=== PATIENT | female | born 1995 | race Hispanic/Latino ===

== ENCOUNTER 2019-04-10 07:39 | Emergency (ER) | payer MEDICAID ==
[2019-04-10] MEDS ORDERED: SODIUM CHLORIDE 0.9% 1000ML 1,000 ML IV ONE (08:21)
[2019-04-10] MEDS ORDERED: ONDANSETRON HCL 4 MG/2 ML VIAL ONE (08:21)
[2019-04-10 08:30] LABS: BASOPHILS % (AUTO) 0.5 % (0.0-5.0); EOSINOPHILS % (AUTO) 1.3 % (0.0-8.0); LYMPHOCYTES % (AUTO) 26.2 % (21.0-51.0); MEAN CORPUSCULAR HEMOGLOBIN 31.7 pg (27.0-33.0); MEAN CORPUSCULAR VOLUME 90.5 fL (79-99); MONOCYTES % (AUTO) 4.7 % (3.0-13.0); PLATELET COUNT (AUTO) 243 K/uL (130-400); RED BLOOD CELL COUNT(AUTO) 3.98 MIL/uL (4.00-5.50); RED CELL DISTRIBUTION WIDTH 11.8 % (11.0-15.5); WHITE BLOOD COUNT (AUTO) 6.2 K/uL (4.8-10.8)
[2019-04-10 08:40] LABS: APPEARANCE,URINE Turbid (CLEAR); BILIRUBIN,URINE Negative (NEGATIVE); COLOR,URINE Yellow (YELLOW); GLUCOSE, URINE (UA) Negative (NEGATIVE); KETONES,URINE Negative (NEGATIVE); LEUKOCYTE ESTERASE ,URINE Small (NEGATIVE); NITRATE,URINE Negative (NEGATIVE); OCCULT BLOOD,URINE Negative (NEGATIVE); PH,URINE 7.5 (5.0-8.0); PROTEIN,URINE Negative (NEGATIVE)
[2019-04-10 08:45] LABS: AMPHET/METH SCREEN,URINE NEGATIVE (NEGATIVE); BARBITURATE SCREEN, URINE NEGATIVE (NEGATIVE); BENZODIAZEPINES SCREEN,URINE NEGATIVE (NEGATIVE); CANNABINOID SCREEN,URINE NEGATIVE (NEGATIVE); COCAINE SCREEN,URINE NEGATIVE (NEGATIVE); OPIATE SCREEN,URINE NEGATIVE (NEGATIVE); PHENCYCLIDINE SCREEN,URINE NEGATIVE (NEGATIVE)
[2019-04-10 08:46] LABS: HCG,QUAL RESULT POSITIVE (NEGATIVE)
[2019-04-10 08:46] LABS: CREATININE 0.4 mg/dL (0.5-1.5); POTASSIUM 3.2 mmol/L (3.5-5.1)
[2019-04-10 08:48] LABS: AMORPHOUS SEDIMENT,UR Many /LPF (None Seen); BACTERIA,URINE Few /HPF (None Seen); MUCUS,URINE Few LPF (None Seen); RBC,URINE 0-1 /HPF (0-1); SQUAMOUS EPITHELIAL CELL,UR Few /HPF (0-2)
[2019-04-10 08:56] LABS: ALBUMIN 3.4 g/dL (3.5-5.0); BILIRUBIN,DIRECT 0.1 mg/dL (0.0-0.3); BILIRUBIN,TOTAL 0.3 mg/dL (0.2-1.0); TOTAL PROTEIN, SERUM 7.2 g/dL (6.0-8.3)
== END 2019-04-10 10:53 | disposition home or self-care (01) ==
LOC: EDH 07:39
DX: O20.0 Threatened abortion (principal); O21.8 Other vomiting complicating pregnancy; Z3A.23 23 weeks gestation of pregnancy
CPT/HCPCS: 36415; 76801; 80048; 80076; 80305; 81001; 81025; 84702; 85025; 86850; 86900; 86901; 96361; 96374; 99285; J2405; J7030

== ENCOUNTER 2019-10-12 17:57 | Inpatient (IN) | payer MEDICAID ==
[~2019-10-12] VITALS: Ht 157.5 cm; Wt 68.0 kg
[2019-10-12] MEDS ORDERED: LACTATED RINGERS 1000ML 1,000 ML IV PRN (18:18)
[2019-10-12 18:40] LABS: HEMATOCRIT 32.5 % (36-48); MEAN CORPUSCULAR HGB CONC 31.4 g/dL (32.0-36.0); MEAN CORPUSCULAR VOLUME 82.7 fL (79-99); RED BLOOD CELL COUNT(AUTO) 3.93 MIL/uL (4.00-5.50); RED CELL DISTRIBUTION WIDTH 16.3 % (11.0-15.5); WHITE BLOOD COUNT (AUTO) 5.2 K/uL (4.8-10.8)
[2019-10-12 18:43] LABS: APPEARANCE,URINE Clear (CLEAR); BILIRUBIN,URINE Negative (NEGATIVE); COLOR,URINE Yellow (YELLOW); GLUCOSE, URINE (UA) Negative (NEGATIVE); KETONES,URINE Negative (NEGATIVE); LEUKOCYTE ESTERASE ,URINE Negative (NEGATIVE); NITRATE,URINE Negative (NEGATIVE); OCCULT BLOOD,URINE Negative (NEGATIVE); PROTEIN,URINE Negative (NEGATIVE)
[2019-10-12] MEDS ORDERED: AMPICILLIN 2GM+NS 100ML 100 ML IV SCH (19:00)
[2019-10-12] MEDS: AMPICILLIN 1GM+NS 50ML 50 ML IV SCH ×3 (19:29→23:16)
[2019-10-12] MEDS ORDERED: DINOPROSTONE 10 MG VAGINAL SUPP VG SCH (19:45)
[2019-10-13] MEDS ORDERED: MEPERIDINE-PF 50 MG/ML SYG IVP ONE (01:45)
[2019-10-13] MEDS ORDERED: PROMETHAZINE HCL 25 MG/ML 1ML AMPULE IM SCH (01:45)
[2019-10-13] MEDS ORDERED: MEPERIDINE-PF 50 MG/ML SYG ONE (01:55)
[2019-10-13] MEDS ORDERED: EPHEDRINE SULFATE 50 MG/ML AMPULE IVP PRN (02:45)
[2019-10-13] MEDS ORDERED: NALOXONE HCL 0.4 MG/1 ML ML IV PRN (02:45)
[2019-10-13] MEDS ORDERED: LACTATED RINGERS 500 ML 500 ML IV PRN (02:45)
[2019-10-13] MEDS ORDERED: OXYTOCIN-LR 20 UNITS/1000 ML 1,000 ML IV ONE ×2 (04:10→06:35)
[2019-10-13] MEDS ORDERED: LIDOCAINE HCL 1% 20 ML VIAL ONE (04:26)
[2019-10-13] MEDS ORDERED: WITCH HAZEL 1 PAD TP PRN (05:15)
[2019-10-13] MEDS ORDERED: BENZOCAINE/LANOLIN/ALOE VERA 60 ML AEROSOL TP PRN (05:15)
[2019-10-13] MEDS ORDERED: LANOLIN 30GM OINTMENT TP PRN (05:15)
[2019-10-13] MEDS ORDERED: ACETAMINOPHEN-CODEINE 300/30MG TAB PO PRN (05:15)
[2019-10-13] MEDS ORDERED: OXYTOCIN 10 USP UNITS/ML 20 UNIT in LACTATED RINGERS 1000ML 1,000 ML IV SCH (07:00)
[2019-10-13 07:31] VITALS: BP 108/69
[2019-10-13] MEDS: DOCUSATE SODIUM 100 MG CAP PO SCH ×2 (09:10→20:27)
[2019-10-13] MEDS: IBUPROFEN 600 MG TABLET PO PRN ×2 (09:12→20:29)
[2019-10-13 11:11] VITALS: BP 115/61
[2019-10-13] MEDS: ACETAMINOPHEN 325 MG TAB PO PRN (13:20)
[2019-10-13 15:45] VITALS: BP_SYST 89; BP_SYST 96; BP_DIAS 54; BP_DIAS 63
[2019-10-13 20:30] VITALS: BP 108/64
[2019-10-13] MEDS ORDERED: PREN1COM14 PO (23:27)
[2019-10-13 23:34] VITALS: BP 115/74
[2019-10-14 04:02] VITALS: BP 102/68
[2019-10-14] MEDS: IBUPROFEN 600 MG TABLET PO PRN (06:48)
[2019-10-14 07:26] VITALS: BP 110/70
[2019-10-14 08:13] LABS: HEPATITIS Bs ANTIGEN SCREEN P Negative (Negative)
[2019-10-14] MEDS: DOCUSATE SODIUM 100 MG CAP PO SCH (09:29)
[2019-10-14] MEDS: ACETAMINOPHEN 325 MG TAB PO PRN (09:31)
[2019-10-14 11:18] VITALS: BP 97/58
--- NOTE | 2019-10-14 12:05 | NUR ---
DISCHARGE INSTRUCTIONS READ AND EXPLAINED TO PATIENT. EXPLAINED TO PATIENT RX WAS CALLED IN TO [facility] ON [facility] PREFERRED TO PATIENT. PATIENT VOICED UNDERSTANDING ON ALL INSTRUCTIONS
--- NOTE | 2019-10-14 14:25 | NUR ---
PATIENT LEFT UNIT VIA WHEELCHAIR WITH BABY IN ARMS. PERSONAL VEHICLE USED FOR TRANSPORTATION ACCOMPANIED BY . BABY SECURE IN CARSEAT. NO COMPLAINTS OR CONCERNS ADDRESSED FROM PATIENT ON DISCHARGE.
== END 2019-10-14 14:25 | disposition home or self-care (01) | DRG 560 ==
LOC: LDH 17:57 → WSH 10-13 07:30
PROVIDERS: ADMIT Obstetrics & Gynecology; ATTEND Obstetrics & Gynecology
PROC: 10E0XZZ Delivery of Products of Conception, External Approach (ICD-10-PCS; principal; 2019-10-12)
DX: O99.824 Streptococcus B carrier state complicating childbirth (principal); Z37.0 Single live birth; Z3A.39 39 weeks gestation of pregnancy; O71.82 Other specified trauma to perineum and vulva
CPT/HCPCS: 36415; 81003; 85027; 86592; 86701; 86850; 86900; 86901; 87340; 87390; A4314; G0378; J0290; J2175; J2590; J7120